=== PATIENT | male | born 1970 | race Caucasian/White ===

== ENCOUNTER 2020-05-26 07:06 | Outpatient (CLI) | payer BC ==
[2020-05-26 15:13] LABS: BASOPHILS # (AUTO) 0.1 10^3/uL (0.0-0.1); BASOPHILS % (AUTO) 0.9 %; EOSINOPHILS # (AUTO) 0.2 10^3/uL (0.0-0.7); EOSINOPHILS % (AUTO) 2.2 %; HCT - HEMATOCRIT 45.8 % (42.0-52.0); HGB - HEMOGLOBIN 15.4 g/dL (14.0-18.0); LYMPHOCYTES # (AUTO) 1.9 10^3/uL (1.5-3.5); LYMPHOCYTES % (AUTO) 27.7 %; MEAN CORPUSCULAR HGB CONC 33.6 g/dL (32.0-36.0); MEAN CORPUSCULAR VOLUME 92.2 fL (80.0-94.0); MEAN PLATELET VOLUME 9.9 fL (7.4-11.4); MONOCYTES # (AUTO) 0.6 10^3/uL (0.0-1.0); MONOCYTES % (AUTO) 7.9 %; NEUTROPHILS # (AUTO) 4.2 10^3/uL (1.5-6.6); NEUTROPHILS % (AUTO) 60.9 %; PLT - PLATELET COUNT 259 10^3/uL (130-450); RED BLOOD COUNT 4.97 10^6/uL (4.70-6.10); RED CELL DISTRIBUTION WIDTH 12.8 % (12.0-15.0); WHITE BLOOD COUNT 6.9 x10^3/uL (4.8-10.8)
[2020-05-26 15:38] LABS: THYROID STIMULATING HORMONE 3.3 uIU/mL (0.34-5.60)
[2020-05-26 15:44] LABS: ALBUMIN 4.4 g/dL (3.2-5.5); ALBUMIN/GLOBULIN RATIO 1.4 (1.0-2.2); ALKALINE PHOSPHATASE 55 IU/L (42-121); ALT ALANINE AMINOTRANSFERASE 20 IU/L (10-60); AST ASPARTATE AMINOTRANSFERASE 18 IU/L (10-42); BUN - BLOOD UREA NITROGEN 17 mg/dL (6-20); CARBON DIOXIDE - CO2 26 mmol/L (21-32); CHLORIDE 101 mmol/L (101-111); CHOL/HDL RATIO 5.8 (<5.0); CHOLESTEROL 190 mg/dL; CREATININE 0.9 mg/dL (0.6-1.2); GFR - MDRD 89 (>89); GLUCOSE 87 mg/dL (70-100); HDL CHOLESTEROL 33 mg/dL; LDL CHOLESTEROL,CALCULATED 121 mg/dL; LDL/HDL RATIO 3.7 (<3.6); POTASSIUM 3.9 mmol/L (3.5-5.0); SODIUM 135 mmol/L (135-145); TOTAL PROTEIN 7.5 g/dL (6.7-8.2); TRIGLYCERIDES 178 mg/dL; VLDL CHOLESTEROL 36 mg/dL
== END 2020-05-26 07:07 | disposition home or self-care (01) ==
LOC: LAB.S 07:06
PROVIDERS: ATTEND Registered Nurse
DX: G47.39 Other sleep apnea (principal); Z72.0 Tobacco use
CPT/HCPCS: 36415; 80053; 80061; 83721; 84153; 84443; 85025

== ENCOUNTER 2020-06-29 13:46 | Outpatient (CLI) | payer BC ==
[2020-06-29 16:13] VITALS: BP 157/102
--- NOTE | 2020-06-29 16:13 | SLEEP CARE CONSULTATION ---
Information from patient questionnaire entered by Danilo Patricio. I have reviewed and concur with the information entered by Danilo Patricio. This document represents the service I personally performed and the decisions made by me, Shahab Fitzpatrick MD, [facility]. History of Present Illness Service Date and Time: 06/29/2020 1346 Reason for Visit: New patient, Previously diagnosed sleep apnea, sleep apnea on CPAP therapy Chief Complaint: reports: Unrefreshed sleep, Snoring, Fatigue, Other (Update supplies) Date of Onset: 2 years sleep, 3 years snoring Usual bedtime: 10:30 PM Time it takes to fall asleep: Immediately Snores at night: Yes Observed to quit breathing while asleep: Yes Sleeps alone due to snoring: No Number of times waking at night: Not often Reasons for waking at night: reports: Pain, Other Toss, Turn, or Twitch while sleeping: Yes Usually gets out of bed at: 5 to 6 AM Feels refreshed in the morning: No Morning headache: Yes (sometimes, usually resolves a couple of hours after awaking) Sleepy or fatigued during the day: Yes Ever fallen asleep while driving: No Takes day naps: No Dreams during day naps: No Prior sleep studies: Yes Year and Where: 2007 and 2013 [facility], [place], [place] Additional HPI information: I had the pleasure of seeing Mr. Rawls today regarding obstructive sleep apnea- hypopnea. As you know, he is a 50 year old gentleman who was diagnosed with the sleep-disordered breathing in [place]. He had sleep studies performed in 2007 and 2013, results of which are not available. He recalls the AHI to be 52. He was prescribed a CPAP device set at 9 which he feels is not enough. He uses the device every night and all night. The compliance data show usage in 180 out of the past 180 nights, averaging 7.5 hours a night. The residual AHI is 3.4 and average time in large leak per day is 32 seconds. He wears a [employer] Eson nasal mask. He got his supplies from a durable medical supplier in [place]. He tries to switch to [employer]. He finds the treatment very beneficial and cannot sleep without his CPAP. - Parasomnia Symptoms Ever been unable to move upon waking from sleep: No Ever felt weak in the knees when startled or emotional: No Bothered by creepy, crawly, restless sensations in legs: Yes Problems with memory or concentration: Yes Subjective Initial [place] Sleepiness Scale score: 11 (in 2020) Social History The patient's occupation is a [employer]. Patient is Single and lives in [place]. Have you smoked in the past 12 months: Yes Cigarettes per day (20/pack): 20 Years of smokin Quit date: 04/12/2019 Smoking Pack Years: 40.0 Alcohol use: No Caffeine use: Yes Caffeine amount and frequency: 4-5 every day Family History Family history of sleep disordered breathing: Yes Family Hx Sleep Apnea: Father: Snoring, Sleep apnea - Treated Allergies and Home Medications Drug allergies reviewed: Yes Home medication list reviewed: Yes Review of Systems Cardiovascular: denies: high blood pressure, palpitations, chest pain, irregular heart rate or pulse, leg or foot swelling, have to sleep sitting up, other Respiratory: denies: shortness of breath, wheeze, sputum production, chronic cough, other Urinary: reports: urgency Neurological: reports: headaches Psychiatric: denies: Attention Deficit Hyperactivity, anxiety, depression, mood disorder, claustrophobia, other Ear/Nose/Throat: reports: nasal congestion, sinus problems, injury to nose, wisdom teeth removed Endocrine: reports: sluggishness (tired), too hot or cold Musculoskeletal: reports: joint pain (stiffness), neck pain, back pain, joint swelling Immunologic: reports: sneezing (runny nose), itching Physical Exam Vital signs obtained and entered by: Dr. Fitzpatrick Blood Pressure: 157/102 Cuff size: regular Heart Rate: 59 O2 Saturation: 99 Height: 5 ft 8 in Weight: 180 lb Body Mass Index: 27.3 BMI Classification: Overweight Neck circumference: 16.5 Mood/affect: normal HEENT: No craniofacial malformation Nostrils: patent to airflow Turbinates: normal Septum: midline Mouth and throat: narrow oropharynx Soft palate: long Hard palate: normal Uvula: normal Uvula visualization: 25% Mallampati Class III Tongue: normal in size Tonsils: small Chin and jaw: Micrognathia Neck: normal w/o lymphadenopathy or thyromegaly Impression and Plan IMPRESSION: 1. Obstructive Sleep Apnea-Hypopnea Syndrome, as previously diagnosed. The patient has good CPAP compliance. He reports significant benefits. The current pressure setting appears effective but slightly uncomfortable. He would like it to be turned up. Because the CPAP is now older than the useful life of 5 years, he is eligible for a new one but we will have to repeat the sleep study to confirm the diagnosis. Plan: 1. Order a home sleep apnea test (HSAT). He is to not use his CPAP one night prior to the test. 2. His CPAP was raised to 11 cmH2O for comfort. 3. Return for follow up after the test. Time Spent with Patient (minutes): 15
== END 2020-06-29 13:47 | disposition home or self-care (01) ==
LOC: SC 13:46
PROVIDERS: ATTEND Internal Medicine Pulmonary Disease
DX: G47.33 Obstructive sleep apnea (adult) (pediatric) (principal); E66.3 Overweight; Z68.27 Body mass index [BMI] 27.0-27.9, adult
CPT/HCPCS: 99202; 99212

== ENCOUNTER 2020-08-07 14:11 | Outpatient (CLI) | payer BC | END 2020-08-07 14:12 | disposition home or self-care (01) | LOC: SC 14:11 | PROVIDERS: ATTEND Internal Medicine Pulmonary Disease | DX: G47.33 Obstructive sleep apnea (adult) (pediatric) (principal); R09.02 Hypoxemia | CPT/HCPCS: 95806 ==

== ENCOUNTER 2020-08-24 13:52 | Outpatient (CLI) | payer BC ==
--- NOTE | 2020-08-24 15:36 | SLEEP CARE CONSULTATION ---
Information from patient questionnaire entered by Rachelle Gracia. I have reviewed and concur with the information entered by Rachelle Gracia. This document represents the service I personally performed and the decisions made by me, Shahab Fitzpatrick MD, [facility]. History of Present Illness Service Date and Time: 08/24/2020 1352 Initial [place] Sleepiness Scale score: 11 (in 2020) Current [place] Sleepiness Scale score: 4 Additional HPI information: HPI: Mr. Rawls returned for follow up of the sleep study he had on 08/07/2020. The test showed moderate obstructive sleep apnea-hypopnea with an AHI of 19.6 and larisa oxygen saturation of 85%. The respiratory events occurred almost exclusively during supine sleep. The patient was informed of these findings. I explained to him the pathophysiology behind obstructive sleep apnea. Presently, he is using his CPAP every night. It is set on 9 cmH2O. Sleep Study - Results Type of Sleep Study: Home sleep study Prior sleep studies: Yes [facility] [place] Allergies and Home Medications Drug allergies reviewed: Yes Home medication list reviewed: Yes Review of Systems Review of systems same as previous: Yes Physical Exam Height: 5 ft 8 in Weight: 180 lb Body Mass Index: 27.3 BMI Classification: Overweight Impression and Plan IMPRESSION: 1. Obstructive Sleep Apnea-Hypopnea Syndrome, moderate, and positional. The patient has had good CPAP compliance all along. The pressure of 9 cmH2O appears adequate. Because the CPAP is now older than the useful life of 5 years, I will order the patient a new one and make it an autoCPAP set between 7 and 12 cmH2O.. PLAN: 1. Prescription made for an autoCPAP, heated humidifier, and related supplies. 2. Return for follow up after one month of using the CPAP. Visit Type: In Office Time Spent with Patient (minutes): 15 Provider Statement: I spent 100% of the Face to Face Visit with the patient with greater than 50% spent counseling the patient and coordination of care.
== END 2020-08-24 13:53 | disposition home or self-care (01) ==
LOC: SC 13:52
PROVIDERS: ATTEND Internal Medicine Pulmonary Disease
DX: G47.33 Obstructive sleep apnea (adult) (pediatric) (principal); E66.3 Overweight; Z68.27 Body mass index [BMI] 27.0-27.9, adult
CPT/HCPCS: 99212

== ENCOUNTER 2021-06-14 08:00 | Outpatient (CLI) | payer BC ==
--- NOTE | 2021-06-14 14:33 | XRAY Report ---
PROCEDURE: Shoulder 3 View RT INDICATIONS: RIGHT SHOULDER PAIN TECHNIQUE: 3 views of the shoulder were acquired. COMPARISON: None. FINDINGS: Bones: No fractures or dislocations. No suspicious bony lesions. Visualized ribs appear intact. M ild periarticular osteophyte formation at the acromioclavicular and glenohumeral joints. Soft tissues: No suspicious soft tissue calcifications. IMPRESSION: Osteoarthritis. No acute fracture. No osseous lesion. If symptoms and/or clinical suspic ion for pathology continue, further assessment with repeat plain films, or advanced imaging (e.g., CT , MRI, or bone scan) is recommended for further assessment. Reviewed by: Mikaela Castro MD on 06/14/2021 2:31 PM PDT Approved by: Mikaela Castro MD on 06/14/2021 2:31 PM PDT Station ID: [id number]
== END 2021-06-14 23:59 | disposition home or self-care (01) ==
LOC: DI.S 08:00
PROVIDERS: ATTEND Registered Nurse
DX: M19.011 Primary osteoarthritis, right shoulder (principal)

== ENCOUNTER 2023-06-02 07:35 | Outpatient (CLI) | payer BC | END 2023-06-02 23:59 | disposition critical access hospital (66) | LOC: EMS 07:35 | DX: R07.89 Other chest pain (principal); R06.02 Shortness of breath | CPT/HCPCS: A0425; A0429 ==

== ENCOUNTER 2023-06-02 08:28 | Emergency (ER) | payer BC ==
[2023-06-02 08:46] VITALS: O2SAT 98
--- NOTE | 2023-06-02 08:47 | ED Physician Documentation ---
PD HPI CHEST PAIN - Stated complaint Stated Complaint: CP - Chief complaint Chief Complaint: Cardiac - History obtained from History obtained from: Patient - History of Present Illness Timing - onset: How many hours ago (about 1 1/2 hours ago (about 7 am).), Today Timing - onset during: Rest Timing - details: Abrupt onset, Still present Quality: Aching, Sharp, Pain Location: Left chest Radiation: No: Jaw, Neck, Back Worsened by: Inspiration, Movement. No: Exertion, Palpation Associated symptoms: No: Shortness of air, Diaphoresis, Nausea, Feeling faint / dizzy Similar symptoms before: Has not had sx before Review of Systems Constitutional: denies: Fever, Chills Nose: denies: Rhinorrhea / runny nose, Congestion Throat: denies: Sore throat Respiratory: denies: Cough GI: reports: Nausea. denies: Vomiting, Diarrhea Skin: denies: Rash, Lesions PD PAST MEDICAL HISTORY - Past Medical History Past Medical History: No Cardiovascular: None Respiratory: None - Past Surgical History Past Surgical History: No - Present Medications Home Medications: Ambulatory Orders Medication Instructions Recorded Confirmed Meloxicam 15 mg PO DAILY PRN 06/02/23 06/02/23 - Allergies Allergies/Adverse Reactions: Allergies Allergy/AdvReac Type Severity Reaction Status Date / Time No Known Drug Allergies Allergy Verified 06/02/23 08:37 - Social History Does the pt smoke?: No Smoking Status: Never smoker Does the pt drink ETOH?: Yes Does the pt have substance abuse?: No PD ED PE NORMAL - Vitals Vital signs reviewed: Yes - General General: Alert and oriented X 3, No acute distress, Well developed/nourished - HEENT HEENT: Pharynx benign - Neck Neck: Supple, no meningeal sign, No adenopathy - Cardiac Cardiac: RRR, No murmur - Respiratory Respiratory: Clear bilaterally, Other (no chestwall tenderness. ) - Abdomen Abdomen: Soft, Non tender - Derm Derm: Normal color, Warm and dry - Extremities Extremities: Normal ROM s pain, No edema, No calf tenderness / cord - Neuro Neuro: Alert and oriented X 3 Eye Opening: Spontaneous Motor: Obeys Commands Verbal: Oriented GCS Score: 15 Results - Vitals Vitals: Oxygen O2 Source Room air - EKG (time done) 08:42 EKG releavant findings:: EKG personally interpreted by author of this note. Relevant findings are: Rate: Rate (enter#) (59) Rhythm: NSR [place]: Normal Intervals: Normal FL QRS: Normal Ischemia: Normal ST segments. No: ST elevation c/w ischemia, ST depression - Labs Labs: Laboratory Tests 06/02/23 06/02/23 06/02/23 09:03 09:03 10:13 WBC 3.7 L RBC 5.08 Hgb 15.8 Hct 46.0 MCV 90.6 MCH 31.1 H MCHC 34.3 RDW 12.7 Plt Count 224 MPV 9.6 Neut # (Auto) 1.8 Lymph # (Auto) 1.4 L [place] # (Auto) 0.3 Eos # (Auto) 0.1 Baso # (Auto) 0.1 Absolute Nucleated RBC 0.00 Nucleated RBC % 0.0 Sodium 138 Potassium 4.0 Chloride 106 Carbon Dioxide 26 Anion Gap 6.0 BUN 19 Creatinine 0.8 Estimated GFR (MDRD) 100 Glucose 101 Calcium 9.5 Total Bilirubin 0.8 AST 20 ALT 20 Alkaline Phosphatase 60 Troponin I High Sens 2.4 < 2.3 L Total Protein 7.2 Albumin 4.5 Globulin 2.7 Albumin/Globulin Ratio 1.7 Lipase 38 - Rads (name of study) chest xray Relevant Findings:: Prelim report reviewed, EMP independent interpretation of test (no acute process. ) PD Medical Decision Making - ED course Complexity details: reviewed results (CXR and ECG are normal. Troponin is normal at about 2 hours prior to onset. Could be before the rise, so repeated it again about 1 1/2 hours after the first and is still normal. No obvious heart process, nor lung. Lipase is WNL. ), considered differential (onset left focal pleuritic chest pain without tender to palpation. No dypsnea nor hypoxia. No risk factors for PE. no injury. ), d/w patient Departure - Departure Disposition: 01 Home, Self Care Clinical Impression: Chest pain, Shoulder pain, Ruled out for myocardial infarction Condition: Stable Record reviewed to determine appropriate education?: Yes Instructions: ED Chest Pain Pleurisy Follow-Up: Rachel Queen ARNP [Primary Care Provider] - Comments: Your EKG EKG, chest x-ray and blood tests are normal. The repeat blood test is still normal for troponin which is a marker for heart injury. No signs of fluid in the lungs or collapsed lung etc. At this point I would presume some inflammation around the lung such as pleurisy. This can be an inflammatory condition or can happen postviral sometimes. There is an element that sounds perhaps muscular and that could be being triggered by breathing. Comment treatment for these would be anti-inflammatories such as ibuprofen or naproxen 2 to 3 tablets 3 times daily for the next several days to week. To that add Tylenol 500 to 650 mg 4 times daily for pain. I would anticipate this to tapering down and improving over the next few days. Recheck if you develop other symptoms such as fevers, coughing hard, skin rash, other concerns. Forms: PCP List Discharge Date/Time: 06/02/23 11:30
[2023-06-02] MEDS: ACETAMINOPHEN 500 MG TABLET PO STA (08:55)
[2023-06-02] MEDS: KETOROLAC 15 MG/ML VIAL IVP STA (08:56)
--- NOTE | 2023-06-02 09:04 | XRAY Report ---
PROCEDURE: Chest 1V INDICATIONS: Chest Pain TECHNIQUE: One view of the chest was acquired. COMPARISON: None. FINDINGS: Surgical changes and devices: None. Lungs and pleura: No pleural effusions or pneumothorax. Lungs are clear. Mediastinum: Mediastinal contours appear normal. Heart size is normal. Bones and chest wall: No suspicious bony lesions. Overlying soft tissues appear unremarkable. IMPRESSION: No acute cardiopulmonary process. Reviewed by: Fermin Maurer MD on 06/02/2023 9:03 AM PDT Approved by: Fermin Maurer MD on 06/02/2023 9:03 AM PDT Station ID: [id number]
[2023-06-02 09:07] LABS: BASOPHILS # (AUTO) 0.1 10^3/uL (0.0-0.1); BASOPHILS % (AUTO) 1.6 %; EOSINOPHILS # (AUTO) 0.1 10^3/uL (0.0-0.7); EOSINOPHILS % (AUTO) 3.8 %; HGB - HEMOGLOBIN 15.8 g/dL (14.0-18.0); LYMPHOCYTES # (AUTO) 1.4 10^3/uL (1.5-3.5); LYMPHOCYTES % (AUTO) 37.6 %; MEAN CORPUSCULAR HEMOGLOBIN 31.1 pg (27.0-31.0); MEAN CORPUSCULAR HGB CONC 34.3 g/dL (32.0-36.0); MEAN CORPUSCULAR VOLUME 90.6 fL (80.0-94.0); MEAN PLATELET VOLUME 9.6 fL (7.4-11.4); MONOCYTES # (AUTO) 0.3 10^3/uL (0.0-1.0); MONOCYTES % (AUTO) 9.1 %; NEUTROPHILS # (AUTO) 1.8 10^3/uL (1.5-6.6); NEUTROPHILS % (AUTO) 47.4 %; PLT - PLATELET COUNT 224 10^3/uL (130-450); RED BLOOD COUNT 5.08 10^6/uL (4.70-6.10); RED CELL DISTRIBUTION WIDTH 12.7 % (12.0-15.0); WHITE BLOOD COUNT 3.7 x10^3/uL (4.8-10.8)
[2023-06-02 09:29] LABS: ALBUMIN 4.5 g/dL (3.2-5.5); ALBUMIN/GLOBULIN RATIO 1.7 (1.0-2.2); BILIRUBIN,TOTAL 0.8 mg/dL (0.2-1.0); CALCIUM 9.5 mg/dL (8.5-10.3); CREATININE 0.8 mg/dL (0.6-1.3); TOTAL PROTEIN 7.2 g/dL (6.4-8.9); TROPONIN I HIGH SENSITIVITY 2.4 ng/L (2.3-19.7)
[2023-06-02 11:23] VITALS: BP 128/79
== END 2023-06-02 11:30 | disposition home or self-care (01) ==
LOC: EDUNIT# → ED 08:28
DX: R07.9 Chest pain, unspecified (principal); M25.512 Pain in left shoulder
CPT/HCPCS: 36415; 71045; 80053; 83690; 84484; 85025; 93005; 96374; 99284; A9270

== ENCOUNTER 2023-06-07 09:40 | Emergency (ER) | payer BC ==
[2023-06-07 10:21] LABS: BASOPHILS # (AUTO) 0.1 10^3/uL (0.0-0.1); BASOPHILS % (AUTO) 1.9 %; EOSINOPHILS # (AUTO) 0.1 10^3/uL (0.0-0.7); EOSINOPHILS % (AUTO) 3.1 %; HCT - HEMATOCRIT 46.7 % (42.0-52.0); HGB - HEMOGLOBIN 15.8 g/dL (14.0-18.0); LYMPHOCYTES # (AUTO) 1.5 10^3/uL (1.5-3.5); LYMPHOCYTES % (AUTO) 36.3 %; MEAN CORPUSCULAR HEMOGLOBIN 30.7 pg (27.0-31.0); MEAN CORPUSCULAR HGB CONC 33.8 g/dL (32.0-36.0); MEAN CORPUSCULAR VOLUME 90.9 fL (80.0-94.0); MEAN PLATELET VOLUME 9.1 fL (7.4-11.4); MONOCYTES # (AUTO) 0.4 10^3/uL (0.0-1.0); MONOCYTES % (AUTO) 10.4 %; NEUTROPHILS % (AUTO) 47.8 %; PLT - PLATELET COUNT 230 10^3/uL (130-450); RED BLOOD COUNT 5.14 10^6/uL (4.70-6.10); RED CELL DISTRIBUTION WIDTH 12.9 % (12.0-15.0); WHITE BLOOD COUNT 4.2 x10^3/uL (4.8-10.8)
--- NOTE | 2023-06-07 10:22 | XRAY Report ---
PROCEDURE: Chest 1V INDICATIONS: CP TECHNIQUE: One view of the chest was acquired. COMPARISON: 06/02/2023. FINDINGS: Surgical changes and devices: None. Lungs and pleura: No pleural effusions or pneumothorax. Lungs are clear. Mediastinum: Mediastinal contours appear normal. Heart size is normal. Bones and chest wall: No suspicious bony lesions. Overlying soft tissues appear unremarkable. IMPRESSION: No acute cardiopulmonary process. Reviewed by: Fermin Maurer MD on 06/07/2023 10:20 AM PDT Approved by: Fermin Mauerr MD on 06/07/2023 10:20 AM PDT Station ID: [id number]
[2023-06-07] MEDS: SODIUM CHLORIDE 0.9% 1,000 ML IV STA (10:24)
[2023-06-07 10:33] LABS: MAGNESIUM 1.9 mg/dL (1.7-2.3)
[2023-06-07 10:39] LABS: ALBUMIN 4.5 g/dL (3.2-5.5); ALBUMIN/GLOBULIN RATIO 1.7 (1.0-2.2); BILIRUBIN,TOTAL 0.8 mg/dL (0.2-1.0); CALCIUM 9.3 mg/dL (8.5-10.3); CREATININE 0.9 mg/dL (0.6-1.3); TOTAL PROTEIN 7.2 g/dL (6.4-8.9)
[2023-06-07 10:43] LABS: TROPONIN I HIGH SENSITIVITY 2.6 ng/L (2.3-19.7)
--- NOTE | 2023-06-07 11:28 | CT Report ---
PROCEDURE: Head WO INDICATIONS: Headache TECHNIQUE: Noncontrast 4.5 mm thick angled axial sections acquired from the foramen magnum to the vertex. For r adiation dose reduction, the following was used: automated exposure control, adjustment of mA and/or kV according to patient size. COMPARISON: None. FINDINGS: Image quality: Excellent. CSF spaces: Basal cisterns are patent. No extra-axial fluid collections. Ventricles are normal in size and shape. Brain: No midline shift. No intracranial masses or hemorrhage. Bustillo-white matter interface is norm al. Skull and face: Calvarium and visualized facial bones are intact, without suspicious lesions. Sinuses: Visualized sinuses and mastoids are clear. IMPRESSION: No acute intracranial pathology. Reviewed by: Fermin Maurer MD on 06/07/2023 11:26 AM PDT Approved by: Fermin Maurer MD on 06/07/2023 11:26 AM PDT Station ID: [id number]
--- NOTE | 2023-06-07 12:15 | ED Physician Documentation ---
PD HPI CHEST PAIN - Stated complaint Stated Complaint: CP/HEAD PX/FACE NUMB - Chief complaint Chief Complaint: Cardiac - History obtained from History obtained from: Patient - Additional information Additional information: Patient is a 53-year-old male with no significant past medical history presenting for evaluation of left-sided chest pain that feels like a dull ache starting around 10:00 this morning with radiation into the left arm. He states he was driving at onset of pain. He also reports having a left-sided headache and feeling some pressure behind the left eye. He also reports some numbness over the left cheek. He was seen here on Monday for similar symptoms with an unremarkable workup. He denies having episodes of chest pain in the last several days. He is normally active with hiking and has not had other episodes of chest pain prior to Monday. Does not take any medications regularly.Does not take a blood thinner. No trauma. Denies thunderclap and intensity of headache. Nothing makes his symptoms better or worse. Denies fever, cough, shortness of air, abdominal symptoms, leg swelling or pain. Occasionally does have cramping in the legs. Review of Systems Constitutional: denies: Fever Cardiac: reports: Chest pain / pressure Respiratory: denies: Dyspnea GI: denies: Abdominal Pain, Vomiting : denies: Dysuria Neurologic: reports: Headache PD PAST MEDICAL HISTORY - Past Surgical History Past Surgical History: No Ortho: Rotator cuff repair, Shoulder arthroplasty, Other - Present Medications Home Medications: Ambulatory Orders Medication Instructions Recorded Confirmed Meloxicam 15 mg PO DAILY PRN 06/02/23 06/07/23 - Allergies Allergies/Adverse Reactions: Allergies Allergy/AdvReac Type Severity Reaction Status Date / Time No Known Drug Allergies Allergy Verified 06/02/23 08:37 - Social History Does the pt smoke?: No Smoking Status: Never smoker Does the pt drink ETOH?: No ETOH Use: None Does the pt have substance abuse?: No - Immunizations Immunizations are current?: Yes - POLST Patient has POLST: No PD ED PE NORMAL - General General: Alert and oriented X 3, No acute distress, Well developed/nourished - HEENT HEENT: Atraumatic, PERRL, EOMI, Moist mucous membranes, Pharynx benign - Neck Neck: Supple, no meningeal sign - Cardiac Cardiac: RRR, Strong equal pulses, Other (No chest wall tenderness) - Respiratory Respiratory: No respiratory distress, Clear bilaterally - Abdomen Abdomen: Soft, Non tender, Non distended - Derm Derm: Warm and dry - Neuro Neuro: Alert and oriented X 3, switch house operator 2-12 intact, No motor deficit, No sensory deficit, Normal speech Eye Opening: Spontaneous Motor: Obeys Commands Verbal: Oriented GCS Score: 15 Results - Vitals Vitals: Vital Signs - 24 hr 06/07/23 06/07/23 06/07/23 09:49 09:59 10:03 Temperature 98.1 C H Heart Rate 58 L 63 Respiratory 14 16 Rate Blood Pressure 124/85 H 142/96 H Blood Pressure 124/85 H [Left] O2 Saturation 100 98 06/07/23 06/07/23 06/07/23 11:00 12:00 12:30 Temperature 36.7 C Heart Rate 64 60 56 L Respiratory 12 19 18 Rate Blood Pressure 116/76 116/70 121/68 Blood Pressure [Left] O2 Saturation 100 100 99 06/07/23 06/07/23 13:00 13:15 Temperature 36.7 C 36.7 C Heart Rate 55 L 56 L Respiratory 18 18 Rate Blood Pressure 119/69 120/68 Blood Pressure [Left] O2 Saturation 100 99 Oxygen O2 Source Room air - EKG (time done) 0954 EKG releavant findings:: EKG personally interpreted by author of this note. Relevant findings are: Rate 58, Sinus bradycardia, no STEMI, QTc 416 - Labs Labs: Laboratory Tests 06/07/23 06/07/23 06/07/23 10:15 10:15 12:23 WBC 4.2 L RBC 5.14 Hgb 15.8 Hct 46.7 MCV 90.9 MCH 30.7 MCHC 33.8 RDW 12.9 Plt Count 230 MPV 9.1 Neut # (Auto) 2.0 Lymph # (Auto) 1.5 [place] # (Auto) 0.4 Eos # (Auto) 0.1 Baso # (Auto) 0.1 Absolute Nucleated RBC 0.00 Nucleated RBC % 0.0 Sodium 139 Potassium 4.0 Chloride 105 Carbon Dioxide 28 Anion Gap 6.0 BUN 14 Creatinine 0.9 Estimated GFR (MDRD) 88 L Glucose 110 H Calcium 9.3 Magnesium 1.9 Total Bilirubin 0.8 AST 17 ALT 18 Alkaline Phosphatase 54 Troponin I High Sens 2.6 2.7 Total Protein 7.2 Albumin 4.5 Globulin 2.7 Albumin/Globulin Ratio 1.7 Lipase 34 PD Medical Decision Making - ED course Complexity details: reviewed results, re-evaluated patient, d/w patient ED course: Pt with L sided CP while driving this morning. Radiation to L arm. No known exacerbating/alleviating factors. ALso reports headache and some parasthesia. No focal deficits. CT head ordered as pt does not usually get headaches and has had them now today and last monday but history is not suggestive for SAH. Negative for bleed. EKG no acute ischemia - unchanged from recent ED visits. CBC, chemistries, troponin x 2 unremarkable. Pt resting comfortably here with no worsening symptoms. Low risk for ACS per the HEART score. Symptoms do not suggest PE or dissection. History also does not suggest unstable angina. Pt advised on need for close follow up with PCP and aware of strict return precautions. Departure - Departure Disposition: 01 Home, Self Care Clinical Impression: Chest pain, Headache Condition: Stable Instructions: ED Chest Pain Atypical Unkn Cause, ED Cephalgia Unspecified Follow-Up: Rachel Queen ARNP [Primary Care Provider] - Comments: Your testing today does not show any significant abnormalities like a heart attack but you do need close follow-up with your primary care provider and may need more testing such as a stress test. Please call your PCP today to arrange for close follow-up. If at anytime you develop any new or worsening in any of your symptoms then please return to the emergency department. Forms: PCP List Discharge Date/Time: 06/07/23 13:15
[2023-06-07] MEDS: ACETAMINOPHEN 500 MG TABLET PO STA (12:16)
[2023-06-07 13:19] VITALS: BP 120/68; O2SAT 99
== END 2023-06-07 13:15 | disposition home or self-care (01) ==
LOC: ED 09:40
DX: R07.9 Chest pain, unspecified (principal); R51.9 Headache, unspecified; Z79.899 Other long term (current) drug therapy
CPT/HCPCS: 36415; 70450; 71045; 80053; 83690; 83735; 84484; 85025; 93005; 99284; A9270

== ENCOUNTER 2023-07-18 13:40 | Outpatient (CLI) | payer BC ==
--- NOTE | 2023-07-18 14:18 | CARDIAC PROCEDURE NOTE ---
Stress Test Report Service Date: 07/18/23 Service Time: 14:00 Ordering Provider: Fatuma Wade MD Indication for Test: Assess chest discomfort. 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 However he is very active on weekends, often hiking 10-30 miles, which he continues to feel good doing. On 06/02/2023 he experienced an episode of discomfort beneath his left scapula and radiating forward, after an extended period of working underneath his truck. The discomfort was not associated with increased shortness of breath, GI symptoms or diaphoresis, but when it did not resolve within a few minutes he came into the [facility] Emergency Department to be checked, at which time his EKG was notable for left anterior fascicular block but troponins were negative x 2. Five days later while driving he experienced a different kind of chest discomfort, with numbness in the lower left side of his face and radiation of discomfort inside both arms, as well as bilateral hand numbness. Again there was no increased shortness of breath, diaphoresis or GI symptoms. He again came in to the E.D. again, with similar, stable findings on EKG and troponins. Subsequently he saw his chiropractor and feels that his upper extremity symptoms have returned to baseline. He has some cardiac risk factors as elaborated below, and wants to be reassured that these different chest discomforts are not attributable to his heart. Cardiac Risk Factors: Positive for significant tobacco smoking history (1/2 ppd for 44 yrs, quit in 2019) and hyperlipidemia (untreated); negative for hypertension, diabetes and family history of ASCVD events. Type of Stress Test: Exercise Treadmill Test (ETT) Procedure: -Exercise Treadmill Test- After signing informed consent, the patient performed treadmill exercise using a Hernando protocol. The patient exercised for 10 minutes 59 seconds and achieved a peak heart rate of 158 (95 percent predicted maximum heart rate for age), and an estimated workload of 13.4 METS. The test was terminated due to fatigue/shortness of breath. Resting heart rate: 71 Peak heart rate: 158 Normal response to exercise. Resting BP: 105/61 Peak BP: 189/63 Normal BP response to exercise. Room air oxygen saturation during exercise ranged between 94-98%. Rhythm during exercise: Sinus rhythm throughout without clear ectopy (though the latter cannot be fully excluded due to severe EKG artifact). Symptoms: There was no change in his baseline MSK discomfort and no recurrence of any of the chest pain symptoms that prompted his E.D. evaluations. EKG at rest showed normal sinus rhythm with slight ST elevation in some leads (probably due to mild early repolarization); note that the left anterior fascicular block pattern seen on both prior E.D. EKGs was not present today. EKG at peak stress showed no ischemia by EKG criteria. In Recovery HR and BP decreased rapidly to near resting levels (HR 97, BP 132/65 at 5:00). No imaging was ordered with this stress test. I, Miguelito Hathaway MD, was present throughout this treadmill stress study and supervised it in its entirety. Summary: 1) Exercise tolerance above average for age and sex as evidenced by GEOVANNA of -13%. 2) Normal resting EKG. 3) Adequate level of exercise was achieved on this treadmill stress test. 4) Normal BP response to exercise. 5) No ischemic changes by EKG criteria were seen at peak stress. 6) No imaging was ordered with this test. Conclusions and Recommendations: 1) These are favorable treadmill stress results, including above average exercise time, normal hemodynamic responses and no symptom or EKG evidence of inducible ischemia. 2) The transient appearance of a left anterior fascicular block pattern on EKG is unexplained, but perhaps noteworthy enough that I encouraged him to return for additional clinical evaluation should he continue to experience these different types of chest pains. If this occurs in the next few-several months he should probably have an ETT with imaging, to increase the sensitivity and specificity to detect inducible ischemia.
== END 2023-07-18 13:41 | disposition home or self-care (01) ==
LOC: DI 13:40
PROVIDERS: ATTEND Internal Medicine
DX: R07.9 Chest pain, unspecified (principal); E78.5 Hyperlipidemia, unspecified; Z87.891 Personal history of nicotine dependence
CPT/HCPCS: 93017

== ENCOUNTER 2023-10-13 09:40 | Outpatient (CLI) | payer BC ==
--- NOTE | 2023-10-13 10:15 | XRAY Report ---
PROCEDURE: Hand 1-2V LT INDICATIONS: REPETITIVE STRAIN OF LT HAND TECHNIQUE: 2 views of the hand(s) acquired. COMPARISON: None. FINDINGS: Bones: No fractures or dislocations. No suspicious bony lesions. Soft tissues: No suspicious soft tissue calcifications or masses. IMPRESSION: No acute bony abnormality. Reviewed by: Fermin Maurer MD on 10/13/2023 10:14 AM PDT Approved by: Fermin Maurer MD on 10/13/2023 10:14 AM PDT Station ID: [id number]
[2023-10-13 15:52] LABS: CHOL/HDL RATIO 5.7 (<5.0); CHOLESTEROL 170 mg/dL; HDL CHOLESTEROL 30 mg/dL; TRIGLYCERIDES 449 mg/dL
[2023-10-13 16:06] LABS: THYROID STIMULATING HORMONE 1.97 uIU/mL (0.34-5.60)
[2023-10-13 17:02] LABS: LDL CHOLESTEROL,DIRECT 114 mg/dL (75-193); LDLD/HDL RATIO 3.8 (<3.6)
== END 2023-10-13 09:41 | disposition home or self-care (01) ==
LOC: DI.S 09:40
PROVIDERS: ATTEND Registered Nurse
DX: S63.92XA Sprain of unspecified part of left wrist and hand, initial encounter (principal); Z12.5 Encounter for screening for malignant neoplasm of prostate; Z13.220 Encounter for screening for lipoid disorders; Z13.29 Encounter for screening for other suspected endocrine disorder
CPT/HCPCS: 36415; 80061; 83721; 84153; 84443